=== PATIENT | male | born 1990 | race African-American/Black ===

== ENCOUNTER 2017-08-16 22:49 | Emergency (ER) | payer OTHER ==
[~2017-08-16] VITALS: Ht 170.2 cm; Wt 95.5 kg
[2017-08-16 22:54] VITALS: BP 140/85; PULSE 92; RESP 16; TEMP 98.5; O2SAT 100
[2017-08-17] MEDS ORDERED: TETANUS/DIPHTHERIA TOXOID ADULT 0.5 ML VIAL IM ONE (00:15)
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
[2017-08-17] MEDS ORDERED: ONDANSETRON ODT 4 MG TAB PO ONE (00:30)
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
[2017-08-17] MEDS ORDERED: NORC5TAB PO (02:27)
[2017-08-17] MEDS ORDERED: AUGM875T3 PO (02:27)
[2017-08-17] MEDS ORDERED: ACETAMINOPHEN/HYDROcodone 325 MG/5 MG TAB PO ONE (02:30)
[2017-08-17] MEDS ORDERED: AMOXICILLIN/CLAVULANATE K 875 MG TAB PO ONE (02:30)
== END 2017-08-17 03:00 | disposition home or self-care (01) ==
LOC: NEPD 22:49
DX: S02.82XA Fracture of other specified skull and facial bones, left side, initial encounter for closed fracture (principal); S02.2XXA Fracture of nasal bones, initial encounter for closed fracture; Z23 Encounter for immunization; Y04.2XXA Assault by strike against or bumped into by another person, initial encounter
CPT/HCPCS: 70480; 90471; 90714